=== PATIENT | female | born 1990 | race Two or more races ===

== ENCOUNTER 2022-04-12 10:00 | Emergency (ER) | payer OTHER ==
[~2022-04-12] VITALS: Ht 147.3 cm; Wt 84.1 kg
[2022-04-12 12:09] VITALS: BP 133/87
[2022-04-12] MEDS ORDERED: KETOROLAC TROMETH 60MG/2ML VIAL IM ONE (12:15)
[2022-04-12] MEDS ORDERED: METH750T22 PO (12:29)
[2022-04-12] MEDS ORDERED: IBUP800T27 PO (12:29)
== END 2022-04-12 12:40 | disposition home or self-care (01) ==
LOC: ER 10:07
DX: M54.41 Lumbago with sciatica, right side (principal); M62.830 Muscle spasm of back; X50.1XXA Overexertion from prolonged static or awkward postures, initial encounter; Y93.01 Activity, walking, marching and hiking; Y92.89 Other specified places as the place of occurrence of the external cause; Y99.8 Other external cause status
CPT/HCPCS: 96372; 99283; J1885